=== PATIENT | female | born 1955 | race Caucasian/White ===

== ENCOUNTER → 2019-12-05 14:10 | Outpatient (BNVA) | payer MEDICARE, SELFPAY | PROVIDERS: Visit Provider Nurse Practitioner Family | DX: Z11.59 Encounter for screening for other viral diseases (principal); R05 Cough; R53.83 Other fatigue | CPT/HCPCS: 87635 ==

== ENCOUNTER → 2019-12-26 07:54 | Outpatient (BNVA) | payer MEDICARE, SELFPAY | PROVIDERS: Visit Provider Internal Medicine | DX: E11.65 Type 2 diabetes mellitus with hyperglycemia (principal); L65.9 Nonscarring hair loss, unspecified | CPT/HCPCS: 99203 ==

== ENCOUNTER 2021-08-20 21:27 | Emergency (ER) | payer MEDICARE, SELFPAY ==
--- NOTE | 2021-08-20 21:28 | XRR_ITS ---
PROCEDURE INFORMATION: Exam: XR Left Foot Exam date and time: 08/20/2021 9:51 PM Age: 66 years old Clinical indication: Pain; Foot; Left; Additional info: Injury TECHNIQUE: Imaging protocol: XR Left foot. Views: 3 or more views. COMPARISON: No relevant prior studies available. FINDINGS: Bones/joints: Probable osteopenia. Type 1 accessory navicular. No acute fracture or dislocation. Small well corticated ossific density at the dorsal talonavicular joint suggesting chronic injury. Soft tissues: Distal dorsal soft tissue swelling. No soft tissue gas. Other findings: Three nonweightbearing views submitted. XR/XR foot LT min 3V* [id number] IMPRESSION: No acute fracture. Other findings as above.
[2021-08-20 21:33] VITALS: BP 168/76; PULSE 69; RESP 14; TEMP 35.9; O2SAT 96
--- NOTE | 2021-08-20 21:49 | W.ED.EXTPRO ---
HPI - Extremity Problem General: Chief complaint: Extremity Injury, Lower Stated complaint: Left foot has something in it Time Seen by Provider: 08/20/21 21:37 History of Present Illness: Patient is a 66-year-old female comes to the ED with left foot pain. Symptoms started approximately 2 days ago. Denies any known injury to cause symptoms. Patient states when she steps down she feels a sharp pain in her left heel. When she is not weightbearing she has no pain. Associated symptoms: Deny chest pain, fever(s) or rash Review of Systems Const: Denies: fever(s), chills or fatigue Eyes: Denies: change in vision or eye discomfort ENMT: Denies: throat pain, odynophagia, nasal discharge or nasal congestion Card: Denies: chest pain, palpitations, edema, swelling of feet/ankles, dyspnea on exertion or orthopnea Resp: Denies: dyspnea, productive cough or non-productive cough GI: Denies: abdominal pain, nausea, vomiting, diarrhea, constipation or hematochezia : Denies: flank pain, dysuria or hematuria Musc: Reports: extremity pain (left foot); Denies: neck pain, back pain or extremity swelling Skin/Breast: Denies: rash or new lesions Neuro: Denies: headache(s), numbness in extremities or weakness in extremities PFSH ED PFSH: Surgical History H/O hemorrhoidectomy History of tonsillectomy Family History Father Cancer skin Social History Smoking and tobacco status: never smoked Alcohol intake: never Physical Exam Const: COMMON NORMALS: no acute distress, patient oriented x3 and alert GENERAL APPEARANCE: cooperative and comfortable HENMT: COMMON NORMALS: normocephalic HEAD & SCALP: normocephalic MOUTH: Normal oral and palatal mucosa present THROAT: posterior oropharynx normal and uvula midline Neck/C-Spine: COMMON NORMALS: supple GENERAL: Yes normal visual inspection Resp: COMMON NORMALS: normal respiratory effort, No retractions, No use of accessory muscles and clear to auscultation bilaterally AUSCULTATION: clear to auscultation bilaterally Cardio: COMMON NORMALS: regular rate, regular rhythm, S1 normal heart sound present, S2 normal heart sound present, No gallops present (Cardio), No clicks present (Cardio), No murmurs present (Cardio) and Peripheral pulses 2+ throughout RATE: regular rate RHYTHM: regular rhythm HEART SOUNDS: S1 normal heart sound present and S2 normal heart sound present PERIPHERAL PULSES: Peripheral pulses 2+ throughout GI: COMMON NORMALS: Normal to inspection, nondistended, normoactive bowel sounds present, Soft to palpation, non-tender and no masses PALPATION: Yes Soft to palpation : COMMON NORMALS: Yes no CVA tenderness BLADDER/KIDNEY EXAM: Yes no CVA tenderness Back/Pelvis: COMMON NORMALS: no CVA tenderness Extremity: NARRATIVE EXTREMITY EXAM: Left foot?no erythema, swelling or deformity noted. She has some mild tenderness to palpation over the heel. No wounds or sores on the bottom of the foot. Neurovascular tact. Neuro: COMMON NORMALS: patient oriented x3 and moves all extremities SENSORIUM/ORIENTATION: Yes alert Skin: GENERAL SKIN EXAM: dry skin Course Vital Signs: Vital signs: Vital Signs Temperature 96.6 F L 08/20/21 22:45 Pulse Rate 72 08/20/21 22:45 Respiratory Rate 14 08/20/21 22:45 Blood Pressure 148/81 08/20/21 22:45 Pulse Oximetry 97 08/20/21 22:45 MDM - Extremity (Nontraumatic) Medical Decision Making Patient is a 66-year-old female comes to the ED with left heel pain. Symptoms started 2 days ago. She says whenever she weightbears she can feel sharp pain in heel. Denies any injury or trauma to cause symptoms. Vital stable. She has some mild tenderness to palpation over the left heel. No erythema, swelling or warmth noted. No wounds or sores on bottom of foot. Neurovascular tact. X-ray of left foot showed no acute fractures. Patient diagnosed with plantar fasciitis and was discharged home with a prescription for ibuprofen 800 mg for pain. Follow-up with PCP in the next week for reevaluation. Return to ED precautions given. Patient understood and agreed with plan. Lab Data Radiology Impressions Foot X-Ray 08/20/21 21:28 IMPRESSION: No acute fracture. Other findings as above. Discharge Plan Discharge Patient Disposition: Home Clinical Impression: Plantar fasciitis of left foot Condition: Stable Prescriptions: New ibuprofen 800 mg tablet 800 mg PO Q8H PRN (Reason: pain) Qty: 30 0RF Discharge Orders: Discharge ED (Routine); Ordered 08/20/21 Ordered By: Mendoza Mitchell Referrals: Mendoza Ferro MD [Primary Care Provider] - Discharge Diet: Regular Discharge Activity: Increase activity as tolerated Patient Instructions: Plantar Fasciitis (ED), Plantar Fasciitis Exercises (ED) Activity Restrictions/Additional Instructions: Follow-up with medical provider as directed. Take medications as prescribed. Return to the ER or your medical provider if condition worsens. Please read and understand discharge instructions. Thank you for choosing [facility] for your healthcare needs today. Please realize this is an emergency room and that we are providing you with a medical screening exam and this may not be complete and all inclusive of all the testing and or work up that you may need to determine your ailment or severity of your illness. It is very important that you follow up as instructed or that you return to the Emergency Department should you have concerns or if your condition changes or worsens in any way. Coding Level of Care Code ED Client Strategist for Meliza Fwd Exam Comprehensive
[2021-08-20 22:45] VITALS: BP 148/81; PULSE 72; RESP 14; TEMP 35.9; O2SAT 97
== END 2021-08-20 22:48 | disposition home or self-care (01) ==
PROVIDERS: Emergency Provider Physician Assistant
DX: M72.2 Plantar fascial fibromatosis (principal)
CPT/HCPCS: 73630; 99283

== ENCOUNTER → 2021-11-27 08:34 | Outpatient (BNVA) | payer MEDICARE, SELFPAY | PROVIDERS: Visit Provider Clinical Nurse Specialist Adult Health | DX: E11.65 Type 2 diabetes mellitus with hyperglycemia (principal); R25.2 Cramp and spasm; L65.9 Nonscarring hair loss, unspecified; M79.2 Neuralgia and neuritis, unspecified; N89.8 Other specified noninflammatory disorders of vagina; R53.83 Other fatigue; R60.0 Localized edema | CPT/HCPCS: 80053; 83036; 83880; 84436; 84443; 84481; 85025 ==

== ENCOUNTER 2023-09-05 10:59 | Emergency (ER) | payer MEDICARE, SELFPAY ==
[2023-09-05 11:04] VITALS: BP 167/81; PULSE 87; RESP 18; TEMP 36.8; O2SAT 93
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
--- NOTE | 2023-09-05 13:46 | PC.PHAR ---
PT REFUSED TO REVIEW HOME MEDICATIONS- UNABLE TO COMPLETE MED REC
[2023-09-05 14:02] VITALS: BP 151/86; PULSE 79; RESP 16; TEMP 36.8; O2SAT 95
== END 2023-09-05 14:02 | disposition home or self-care (01) ==
PROVIDERS: Emergency Provider Emergency Medicine
DX: S16.1XXA Strain of muscle, fascia and tendon at neck level, initial encounter (principal); S50.02XA Contusion of left elbow, initial encounter; S70.12XA Contusion of left thigh, initial encounter; S60.222A Contusion of left hand, initial encounter; S80.212A Abrasion, left knee, initial encounter; V49.40XA Driver injured in collision with unspecified motor vehicles in traffic accident, initial encounter; Y92.410 Unspecified street and highway as the place of occurrence of the external cause
CPT/HCPCS: 72040; 99283

== ENCOUNTER → 2025-02-20 08:09 | Outpatient (BNVA) | payer MEDICARE, SELFPAY | PROVIDERS: Visit Provider Thoracic Surgery (Cardiothoracic Vascular Surgery) | DX: E11.52 Type 2 diabetes mellitus with diabetic peripheral angiopathy with gangrene (principal); E11.621 Type 2 diabetes mellitus with foot ulcer; L97.522 Non-pressure chronic ulcer of other part of left foot with fat layer exposed | CPT/HCPCS: 99213 ==

== ENCOUNTER → 2025-02-27 08:25 | Outpatient (BNVA) | payer MEDICARE, SELFPAY | PROVIDERS: Visit Provider Thoracic Surgery (Cardiothoracic Vascular Surgery) | DX: E11.52 Type 2 diabetes mellitus with diabetic peripheral angiopathy with gangrene (principal); E11.621 Type 2 diabetes mellitus with foot ulcer; L97.521 Non-pressure chronic ulcer of other part of left foot limited to breakdown of skin | CPT/HCPCS: 97597 ==

== ENCOUNTER → 2025-03-06 08:28 | Outpatient (BNVA) | payer MEDICARE, SELFPAY | PROVIDERS: Visit Provider Thoracic Surgery (Cardiothoracic Vascular Surgery) | DX: E11.52 Type 2 diabetes mellitus with diabetic peripheral angiopathy with gangrene (principal); E11.621 Type 2 diabetes mellitus with foot ulcer; L97.521 Non-pressure chronic ulcer of other part of left foot limited to breakdown of skin | CPT/HCPCS: 97597 ==

== ENCOUNTER → 2025-03-13 08:45 | Outpatient (BNVA) | payer MEDICARE, SELFPAY | PROVIDERS: Visit Provider Thoracic Surgery (Cardiothoracic Vascular Surgery) | DX: E11.52 Type 2 diabetes mellitus with diabetic peripheral angiopathy with gangrene (principal); E11.621 Type 2 diabetes mellitus with foot ulcer; L97.521 Non-pressure chronic ulcer of other part of left foot limited to breakdown of skin | CPT/HCPCS: 97597; A6212 ==

== ENCOUNTER → 2025-03-27 08:14 | Outpatient (BNVA) | payer MEDICARE, SELFPAY | PROVIDERS: Visit Provider Thoracic Surgery (Cardiothoracic Vascular Surgery) | DX: Z09 Encounter for follow-up examination after completed treatment for conditions other than malignant neoplasm (principal); Z87.2 Personal history of diseases of the skin and subcutaneous tissue | CPT/HCPCS: 99212 ==